=== PATIENT | female | born 1980 | race Caucasian/White ===

== ENCOUNTER 2021-05-01 08:13 | Emergency (ER) | payer OTHER ==
[~2021-05-01 08:13] MED LIST: AUGMENTIN 875-1 EACH PO
[2021-05-01 09:51] LABS: HEMOGLOBIN 13.4 gm/dl (12.3-15.3); RED BLOOD COUNT 4.58 M/UL (4.00-5.10); WHITE BLOOD COUNT 9.5 K/UL (4.5-11.0)
[2021-05-01 10:23] LABS: BUN/CREATININE RATIO 15 (0-10)
[2021-05-01] MEDS ORDERED: IBUPROFEN800 MG PO (12:51)
[2021-05-01] MEDS ORDERED: FLOVENT DISKU100 MCG INH (12:51)
[2021-05-01] MEDS ORDERED: MEDROL DOSEPAK 24 MG PO (12:51)
[2021-05-01] MEDS ORDERED: ZOFRAN ODT 4 MG4 MG PO (12:51)
[2021-05-01] MEDS ORDERED: NASONEX17 GM (12:51)
[2021-05-01] MEDS ORDERED: PROAIR DIGIHAL90 MCG INH (12:51)
== END 2021-05-01 12:55 | disposition home or self-care (01) ==
LOC: ER1 08:13
PROVIDERS: Emergency Medicine
DX: U07.1 COVID-19 (principal); R09.02 Hypoxemia; J45.909 Unspecified asthma, uncomplicated
CPT/HCPCS: 36600; 71045; 80053; 82550; 82553; 82803; 83615; 84484; 84703; 85025; 85379; 99285; Q9967